=== PATIENT | male | born 1995 | race Caucasian/White ===

== ENCOUNTER 2019-08-23 17:00 | Emergency (ER) | payer OTHER ==
[~2019-08-23] VITALS: Ht 180.3 cm; Wt 97.7 kg
[2019-08-23 17:27] VITALS: BP 139/88; TEMP 98.2
[2019-08-23] MEDS ORDERED: FLEXERIL 1010 MG/TAB PO (18:27)
[2019-08-23 19:14] VITALS: PULSE 89
== END 2019-08-23 19:15 | disposition home or self-care (01) ==
LOC: COL.ER 17:00
DX: M54.2 Cervicalgia (principal)